=== PATIENT | male | born 1980 | race Caucasian/White ===

== ENCOUNTER 2024-01-17 11:53 | Emergency (ER) | payer MEDICAID ==
[~2024-01-17] VITALS: Ht 185.4 cm; Wt 136.4 kg
[2024-01-17 11:54] VITALS: BP 137/87; PULSE 101; RESP 18; TEMP 98.7; O2SAT 98
[2024-01-17 13:16] LABS: BASOPHILS % (AUTO) 0.3 % (0-1); EOSINOPHILS # (AUTO) 0.1 X10'3 (0-0.9); EOSINOPHILS % (AUTO) 0.4 % (0-6); HEMATOCRIT 52.3 % (42.0-52.0); HEMOGLOBIN 17.6 g/dl (14.0-17.9); LYMPHOCYTES % (AUTO) 8.1 % (21-51); MEAN CORPUSCULAR HEMOGLOBIN 30.3 PG (27.0-31.0); MEAN CORPUSCULAR HGB CONC 33.6 g/dL (33.0-36.5); MEAN CORPUSCULAR VOLUME 90.4 FL (78-98); MEAN PLATELET VOLUME 8.3 FL (7.4-10.4); MONOCYTES # (AUTO) 0.6 X10'3 (0-0.9); MONOCYTES % (AUTO) 4.4 % (2-12); NEUTROPHILS # (AUTO) 11.2 X10'3 (1.8-7.7); NEUTROPHILS % (AUTO) 86.8 % (42-75); PLATELET COUNT 207 X10'3 (140-440); RED BLOOD COUNT 5.79 X10'6 (4.70-6.10); RED CELL DISTRIBUTION WIDTH 13.6 % (11.5-14.5); WHITE BLOOD COUNT 12.9 X10'3 (4.5-11.0)
[2024-01-17] MEDS: ondansetron 4mg rapidly disintigrating tab PO ONE (13:31)
[2024-01-17] MEDS: diphenoxylate/atropine tablet (Lomotil) PO ONE ×2 (13:31→13:32)
[2024-01-17 14:11] LABS: ALANINE AMINOTRANSFERASE 61 U/L (12-78); ALBUMIN 4.3 G/DL (3.4-5.0); ALKALINE PHOSPHATASE 82 IU/L (46-116); ANION GAP 11 (8-16); ASPARTATE AMINO TRANSFERASE 25 U/L (10-37); BILIRUBIN,TOTAL 0.3 MG/DL (0.1-1.0); BLOOD UREA NITROGEN 15 MG/DL (7-18); BUN/CREATININE RATIO 14.4 (10.0-20.0); CALCIUM 9.5 MG/DL (8.5-10.1); CHLORIDE 102 MMOL/L (99-107); CREATININE 1.04 MG/DL (0.60-1.10); GLUCOSE 125 MG/DL (70-104); POTASSIUM 4.3 MMOL/L (3.5-5.1); SODIUM 138 MMOL/L (135-145); TOTAL CARBON DIOXIDE 25.2 MMOL/L (24-32); TOTAL PROTEIN 8.4 G/DL (6.4-8.2); eCRCL 101 ML/MIN; eGFR 77 ML/MIN
== END 2024-01-17 13:42 ==
LOC: ER 11:54
DX: R19.7 Diarrhea, unspecified (principal); R10.9 Unspecified abdominal pain; I10 Essential (primary) hypertension; F12.10 Cannabis abuse, uncomplicated; F11.10 Opioid abuse, uncomplicated
CPT/HCPCS: 36415; 74176; 80053; 83690; 85025; 99284